=== PATIENT | female | born 1980 | race Caucasian/White ===

== ENCOUNTER 2023-01-16 18:46 | Emergency (ER) | payer MEDICAID ==
[~2023-01-16] VITALS: Ht 170.2 cm; Wt 67.1 kg
[2023-01-16 19:26] VITALS: BP_SYST 116
[2023-01-16] MEDS ORDERED: AUG875 PO (22:36)
[2023-01-16] MEDS ORDERED: IBUP-1969 PO (22:36)
[2023-01-16 23:00] VITALS: BP_SYST 117
== END 2023-01-16 23:00 | disposition home or self-care (01) ==
LOC: SED 18:46
DX: L04.0 Acute lymphadenitis of face, head and neck (principal); H66.92 Otitis media, unspecified, left ear; J02.9 Acute pharyngitis, unspecified; Z79.899 Other long term (current) drug therapy
CPT/HCPCS: 81025; 99283